=== PATIENT | male | born 1975 | race African-American/Black ===

== ENCOUNTER 2017-02-21 15:42 | Emergency (ER) | payer OTHER ==
[~2017-02-21] VITALS: Ht 198.1 cm; Wt 135.0 kg
[~2017-02-21 15:42] MED LIST: ADVIL,NUPRIN,M200 MG PO; AMLODIPINE BESYL5 MG PO; Antivert PO; BACTRIM,SEPT1 TABLET PO; CLINDAMYCIN HC300 MG PO; DELTASONE20 M1 PO; DILAUDID2 MG PO; ENDOCET 5-3251 EACH PO; FAMOTIDINE20 M1 PO; GLIPIZIDE XL10 MG PO; GLIPIZIDE10 MG PO; GLUCOPHAGE500 MG PO; GLUCOPHAGE850 MG PO; GLUCOTROL10 MG PO; Glucophage PO; Glucotrol PO; HYDROCHLOROTH12.5 M3 PO; HYDROCHLOROTHIA25 MG PO; HYGROTON25 MG PO; INVANZ1 GM IM; KEFLEX500 MG PO; LEVEMIR FL100 UNIT/1 SC; LEVEMIR100 UNIT/2 SC; LISINOPRIL20 MG PO; LISINOPRIL40 MG PO; LOPID600 MG PO; LOPRESSOR50 MG PO; LORCET HD 10-31 EACH PO; Levaquin PO; METFORMIN HCL850 MG PO; Medrol Dosepak PO; NOHOMEMEDS; NORVASC5 MG PO; NOVOLOG 10100 UNITS/ SC; NOVOLOG PE100 UNITS/ SC; OXYCODONE HCL5 MG PO; PERCOCET 10/1 TABLET PO; PERCOCET 5/31 TABLET PO; PRILOSEC OTC20 MG PO; PROTONIX40 MG PO; Percocet 5/325,Endoc PO; Procardia XL,Adalat PO; Protonix PO; ROCEPHIN 2 GM VI2 GM IV; ROCEPHIN1000 MG IM; SIMVASTATIN5 MG PO; TRAMADOL HCL50 MG PO; TYLENOL REGULA325 MG PO; Tylenol Regular Stre PO; ULTRAM50 MG PO; VICODIN,LORT1 TABLET PO; ZANTAC150 MG PO; ZESTORETIC 20-1 EAC1 PO; ZESTORETIC,P1 TABLE2 PO; ZESTRIL,PRINIVI20 MG PO; ZESTRIL20 MG PO; ZESTRIL40 MG PO; ZITHROMAX250 MG PO; Zestril,Prinivil PO; oxyCODONE PO
[2017-02-21] MEDS ORDERED: PERCOCET 5/31 TABLET PO (17:14)
[2017-02-21 17:31] VITALS: BP 193/118
== END 2017-02-21 17:32 | disposition home or self-care (01) ==
LOC: EME 15:42
PROC: 2W3RX1Z Immobilization of Left Lower Leg using Splint (ICD-10-PCS; principal; 2017-02-21)
DX: S82.492A Other fracture of shaft of left fibula, initial encounter for closed fracture (principal); W10.9XXA Fall (on) (from) unspecified stairs and steps, initial encounter; I10 Essential (primary) hypertension; E11.9 Type 2 diabetes mellitus without complications; E78.5 Hyperlipidemia, unspecified; G89.29 Other chronic pain; K21.9 Gastro-esophageal reflux disease without esophagitis; Z89.512 Acquired absence of left leg below knee
CPT/HCPCS: 73590; 99281; 99283

== ENCOUNTER 2017-08-03 12:20 | Inpatient (IN) | payer OTHER ==
[~2017-08-03] VITALS: Ht 198.1 cm; Wt 133.4 kg
[2017-08-03 12:54] LABS: POINT-OF-CARE METER ID UU13113778
[2017-08-03 14:10] LABS: HEMATOCRIT 42.7 % (38.0-50.0); MCH 26.5 PG (29.0-34.0); MCV 78.1 FL (86-99); PLATELET COUNT 341 K/uL (156-360); RBC DIS.WIDTH-CV 11.7 % (11.8-14.6); RED BLOOD COUNT 5.47 M/uL (4.00-5.50); WHITE BLOOD COUNT 8.8 K/uL (4.1-10.2)
[2017-08-03 14:21] LABS: CHLORIDE 98 mEq/L (99-109); POTASSIUM 4.4 mEq/L (3.7-5.4); SODIUM 137 mEq/L (136-147)
[2017-08-03 14:22] LABS: GLUCOSE 348 mg/dL (70-99)
[2017-08-03 14:24] LABS: ANION GAP 14 MEQ/L (2-14)
[2017-08-03 14:26] LABS: GFR ESTIMATE (CALCULATED) > 59 mL/min/
[2017-08-03 14:27] LABS: UREA NITROGEN (BUN) 12 mg/dL (9-23)
[2017-08-03 14:31] LABS: ADD MIUA? YES; BILIRUBIN NEGATIVE; BLOOD SMALL; COLOR YELLOW ((YELLOW)); GLUCOSE (STRIP) >=500; KETONES 20; LEUKOCYTES NEGATIVE; NITRITE NEGATIVE; PROTEIN (STRIP) NEGATIVE; SPECIFIC GRAVITY 1.037 (1.000-1.030)
[2017-08-03 14:36] LABS: BACTERIA NONE SEEN /HPF; EPITHELIAL CELLS RARE /HPF; MUCUS NONE SEEN /LPF; RED BLOOD CELLS 0-5 /HPF (0-5); WHITE BLOOD CELLS 0-5 /HPF (0-5)
[2017-08-03] MEDS ORDERED: TYLENOL EXTRA500 MG PO (15:42)
[2017-08-03] MEDS ORDERED: ADVIL,NUPRIN,M200 MG PO (15:43)
[2017-08-03 16:31] LABS: C-REACTIVE PROTEIN 134.5 MG/L (0-10)
[2017-08-03 16:55] LABS: POINT-OF-CARE METER ID UU13113800
[2017-08-03 17:49] LABS: Estimated Average Glucose 309 mg/dL (70-123); HEMOGLOBIN A1c (GLYCOHEMOGLOB) 12.4 % HGB (Below 5.7)
[2017-08-03 18:06] VITALS: BP 136/86
[2017-08-03 18:18] LABS: POINT-OF-CARE METER ID UU13113774
[2017-08-03 21:09] LABS: POINT-OF-CARE METER ID UU13113774
[2017-08-03 23:20] VITALS: BP 138/78
[2017-08-04 04:14] VITALS: BP 113/67
[2017-08-04 06:05] LABS: POINT-OF-CARE METER ID UU13113774
[2017-08-04 07:05] LABS: HEMATOCRIT 35.5 % (38.0-50.0); MCH 26.3 PG (29.0-34.0); MCV 79.8 FL (86-99); MEAN PLAT.VOLUME 9.8 uM^3 (9.0-12.4); PLATELET COUNT 286 K/uL (156-360); RBC DIS.WIDTH-CV 11.7 % (11.8-14.6); RBC DIS.WIDTH-SD 34.1 % (39-53); RED BLOOD COUNT 4.45 M/uL (4.00-5.50)
[2017-08-04 07:09] LABS: ANION GAP 5 MEQ/L (2-14); CHLORIDE 103 MEQ/L (99-109); GFR ESTIMATE (CALCULATED) > 59 mL/min/; GLUCOSE 241 mg/dL (70-99); SAMPLE HEMOLYSIS CHECK 0; SAMPLE ICTERIC CHECK 0; SAMPLE LIPEMIA CHECK 0; SODIUM 136 MEQ/L (136-147); UREA NITROGEN (BUN) 12 mg/dL (9-23)
[2017-08-04 07:25] VITALS: BP 130/90
[2017-08-04 10:53] LABS: POINT-OF-CARE METER ID UU13113725
[2017-08-04 11:36] VITALS: BP 159/92
[2017-08-04 15:30] VITALS: BP 129/79
[2017-08-04 15:38] LABS: POINT-OF-CARE METER ID UU13113725
[2017-08-04 19:33] VITALS: BP 136/75
[2017-08-04 21:58] LABS: POINT-OF-CARE METER ID UU13113725
[2017-08-04 23:13] VITALS: BP 141/89
[2017-08-05 05:09] VITALS: BP 132/89
[2017-08-05 06:22] LABS: POINT-OF-CARE METER ID UU13113725; POINT-OF-CARE USER ID 611181321
[2017-08-05 07:05] VITALS: BP 137/75
[2017-08-05 11:25] VITALS: BP 176/91
[2017-08-05 11:28] LABS: POINT-OF-CARE METER ID UU13113725
[2017-08-05 16:53] LABS: POINT-OF-CARE METER ID UU13113774
[2017-08-05 17:26] VITALS: BP 160/84
[2017-08-05 19:47] VITALS: BP 140/73
[2017-08-05 21:01] LABS: POINT-OF-CARE METER ID UU13113725
[2017-08-06 06:29] LABS: POINT-OF-CARE METER ID UU13113774
[2017-08-06 07:37] VITALS: BP 160/78
[2017-08-06 12:23] LABS: POINT-OF-CARE METER ID UU13113774
[2017-08-06 15:56] VITALS: BP 180/92
[2017-08-06 16:49] LABS: POINT-OF-CARE METER ID UU13113725
[2017-08-06 21:07] LABS: POINT-OF-CARE METER ID UU13113725
[2017-08-07 00:18] VITALS: BP 164/87
[2017-08-07 05:52] LABS: POINT-OF-CARE METER ID UU13113725
[2017-08-07 06:46] LABS: ANION GAP 9 MEQ/L (2-14); CHLORIDE 101 MEQ/L (99-109); GFR ESTIMATE (CALCULATED) > 59 mL/min/; GLUCOSE 176 mg/dL (70-99); SAMPLE HEMOLYSIS CHECK 0; SAMPLE ICTERIC CHECK 0; SAMPLE LIPEMIA CHECK 0; SODIUM 137 MEQ/L (136-147); UREA NITROGEN (BUN) 8 mg/dL (9-23)
[2017-08-07 08:00] VITALS: BP 196/102
[2017-08-07 09:54] VITALS: BP 162/92
[2017-08-07 11:15] LABS: POINT-OF-CARE METER ID UU13113725
[2017-08-07 16:32] LABS: POINT-OF-CARE METER ID UU13113725
[2017-08-07 21:22] LABS: POINT-OF-CARE METER ID UU13113774
[2017-08-07 23:15] VITALS: BP 180/82
[2017-08-08 06:19] LABS: POINT-OF-CARE METER ID UU13113774
[2017-08-08 06:51] VITALS: BP 174/80
[2017-08-08] MEDS ORDERED: OXYCODONE HCL5 MG PO (10:39)
[2017-08-08] MEDS ORDERED: LISINOPRIL20 MG PO (10:39)
[2017-08-08] MEDS ORDERED: LEVEMIR100 UNIT/2 SC (10:39)
[2017-08-08] MEDS ORDERED: KEFLEX500 MG PO (10:39)
[2017-08-08] MEDS ORDERED: LOPRESSOR25 MG PO (10:39)
[2017-08-08 11:05] LABS: POINT-OF-CARE METER ID UU13113774
[2017-08-08] MEDS ORDERED: LEVEMIR FL100 UNIT/1 SC (12:04)
== END 2017-08-08 13:45 | disposition home or self-care (01) | DRG 603 ==
LOC: EME 12:20 → EDOF 15:27 → 5EAST 15:27 → ENRESERV 15:39 → 5EAST 17:44
PROVIDERS: Hospitalist; Internal Medicine; Nurse Practitioner Family
PROC: 0H98XZX Drainage of Buttock Skin, External Approach, Diagnostic (ICD-10-PCS; principal; 2017-08-03)
PROC: 0H9BXZX Drainage of Right Upper Arm Skin, External Approach, Diagnostic (ICD-10-PCS; principal; 2017-08-03)
DX: L02.31 Cutaneous abscess of buttock (principal); L03.317 Cellulitis of buttock; L73.2 Hidradenitis suppurativa; L02.411 Cutaneous abscess of right axilla; B95.61 Methicillin susceptible Staphylococcus aureus infection as the cause of diseases classified elsewhere; L02.421 Furuncle of right axilla; E11.42 Type 2 diabetes mellitus with diabetic polyneuropathy; E11.65 Type 2 diabetes mellitus with hyperglycemia; Z91.14 Patient's other noncompliance with medication regimen; I10 Essential (primary) hypertension; E78.5 Hyperlipidemia, unspecified; G47.9 Sleep disorder, unspecified; K21.9 Gastro-esophageal reflux disease without esophagitis; E66.01 Morbid (severe) obesity due to excess calories; Z68.33 Body mass index [BMI] 33.0-33.9, adult; Z88.5 Allergy status to narcotic agent; Z87.11 Personal history of peptic ulcer disease; Z86.14 Personal history of Methicillin resistant Staphylococcus aureus infection; Z83.3 Family history of diabetes mellitus; Z87.891 Personal history of nicotine dependence; Z89.512 Acquired absence of left leg below knee
CPT/HCPCS: 80048; 81003; 82948; 83036; 83605; 85027; 86140; 87040; 87070; 87075; 87077; 87147; 87186; 87205; 99281; 99285; J1170; J1650; J1815; J1885; J2405; J3010; J3370; J7030; J7050; S0028; S0032

== ENCOUNTER 2018-01-03 21:06 | Emergency (ER) | payer OTHER ==
[~2018-01-03] VITALS: Ht 198.1 cm; Wt 133.6 kg
[~2018-01-03 21:06] MED LIST changes: +LOPRESSOR25 MG PO; +TYLENOL EXTRA500 MG PO
[2018-01-03 23:59] LABS: HEMATOCRIT 41.6 % (38.0-50.0); HEMOGLOBIN 14.6 G/DL (12.5-16.6); MCH 27.6 PG (29.0-34.0); MCHC 35.1 G/DL (30.0-36.0); MCV 78.6 FL (86-99); PLATELET COUNT 304 K/uL (156-360); RBC DIS.WIDTH-CV 12.1 % (11.8-14.6); RBC DIS.WIDTH-SD 34.4 % (39-53); RED BLOOD COUNT 5.29 M/uL (4.00-5.50); WHITE BLOOD COUNT 9.6 K/uL (4.1-10.2)
[2018-01-04 00:07] LABS: ALBUMIN 3.8 g/dL (3.2-4.8)
[2018-01-04 00:08] LABS: CHLORIDE 98 mEq/L (99-109); POTASSIUM 3.8 mEq/L (3.7-5.4); SODIUM 134 mEq/L (136-147)
[2018-01-04 00:10] LABS: GLUCOSE 324 mg/dL (70-99); TOTAL PROTEIN 7.3 g/dL (6.4-8.3)
[2018-01-04 00:12] LABS: TOTAL BILIRUBIN 0.5 mg/dL (0.0-1.0)
[2018-01-04 00:13] LABS: ALKALINE PHOSPHATASE 91 IU/L (3-129)
[2018-01-04 00:14] LABS: CREATININE 0.9 mg/dL (0.6-1.3); GFR ESTIMATE (CALCULATED) > 59 mL/min/ (58.99-99999)
[2018-01-04 00:15] LABS: AST (GOT) 10 IU/L (2-34); UREA NITROGEN (BUN) 10 mg/dL (9-23)
[2018-01-04 00:16] LABS: APPEARANCE CLEAR ((CLEAR)); BILIRUBIN NEGATIVE; BLOOD SMALL; COLOR STRAW ((YELLOW)); GLUCOSE (STRIP) >=500; KETONES NEGATIVE; LEUKOCYTES NEGATIVE; NITRITE NEGATIVE; PROTEIN (STRIP) NEGATIVE; SPECIFIC GRAVITY 1.031 (1.000-1.030); UROBILINOGEN 0.2 MG/DL (0.2-1.0)
[2018-01-04 00:17] LABS: ALT (GPT) 18 IU/L (3-49)
[2018-01-04 00:18] LABS: BACTERIA NONE SEEN /HPF; EPITHELIAL CELLS NONE SEEN /HPF; MUCUS NONE SEEN /LPF; RED BLOOD CELLS 20-30 /HPF (0-5); UCUL ADDED? NO; WHITE BLOOD CELLS 0-5 /HPF (0-5)
[2018-01-04] MEDS ORDERED: BACTRIM,SEPT1 TABLET PO (01:15)
[2018-01-04] MEDS ORDERED: PERCOCET 5/31 TABLET PO (01:15)
[2018-01-04] MEDS ORDERED: MOTRIN600 MG PO (01:15)
[2018-01-04 02:25] VITALS: BP 144/94
== END 2018-01-04 02:26 | disposition home or self-care (01) ==
LOC: EME 21:06
PROVIDERS: Physician Assistant
PROC: 0H97XZZ Drainage of Abdomen Skin, External Approach (ICD-10-PCS; principal; 2018-01-04)
DX: L02.211 Cutaneous abscess of abdominal wall (principal); E11.65 Type 2 diabetes mellitus with hyperglycemia; Z79.4 Long term (current) use of insulin; Z91.14 Patient's other noncompliance with medication regimen; Z86.14 Personal history of Methicillin resistant Staphylococcus aureus infection; I10 Essential (primary) hypertension; E78.5 Hyperlipidemia, unspecified; Z88.5 Allergy status to narcotic agent
CPT/HCPCS: 74177; 80053; 81003; 83605; 85027; 87040; 87070; 87075; 87076; 87185; 87205; 99281; 99284; J7030